=== PATIENT | male | born 1990 | race Caucasian/White ===

== ENCOUNTER → 2017-04-09 12:57 | Outpatient (CLI) | payer OTHER, SELFPAY ==
--- NOTE | 2017-04-09 13:02 | RAD_ITS ---
STUDY: X-RAY - LEFT WRIST REASON FOR EXAM: Male, 26 years old. Pain following a fall. TECHNIQUE: 3 view(s) of the wrist were obtained. COMPARISON: None. FINDINGS: Normal visualized distal radius and ulna. Normal radiocarpal articulation. Normal distal radioulnar articulation. Normal carpal bones. Normal carpal articulations. Normal carpometacarpal articulation of the thumb. Normal second through fifth carpometacarpal articulations. Normal visualized metacarpal bones. Dorsal soft tissue swelling. RAD/Wrist min 3 Views IMPRESSION: Dorsal soft tissue swelling. Electronically Signed: Les Long MD at 15:47 EST Tel [phone], Service support ,
--- NOTE | 2017-04-09 13:02 | RAD_ITS ---
STUDY: X-RAY - LEFT HAND REASON FOR EXAM: Male, 26 years old. Pain following a recent fall. TECHNIQUE: 3 view(s) of the hand. COMPARISON: None. FINDINGS: Normal radiocarpal articulation. Normal distal radioulnar joint. Normal visualized carpal bones. Normal carpal articulations Normal carpometacarpal articulation of the thumb. Normal second through fifth carpometacarpal joints. Normal metacarpi. Normal metacarpophalangeal joint of the thumb. Normal interphalangeal joint of the thumb. Normal proximal and distal phalanges of the thumb. Normal metacarpophalangeal joints of the second through fifth fingers. Normal proximal and distal interphalangeal joints of the second through fifth fingers. Normal phalanges of the second through fifth fingers. The soft tissue structures are unremarkable. RAD/Hand Min 3 Views IMPRESSION: Normal x-ray examination of the hand. Electronically Signed: Les Long MD at 15:46 EST Tel [phone], Service support ,
== END ==
PROVIDERS: Family Provider Family Medicine; PCP Family Medicine; Visit Provider Physician Assistant
DX: S60.222A Contusion of left hand, initial encounter (principal); S60.212A Contusion of left wrist, initial encounter
CPT/HCPCS: 73110; 73130

== ENCOUNTER → 2019-07-31 | Outpatient (CLI) | payer BC, SELFPAY ==
[2019-04-05 08:50] VITALS: BMI 25.9
--- NOTE | 2019-07-31 08:58 | RAD_ITS ---
STUDY: X-RAY - LEFT HAND REASON FOR EXAM: Male, 29 years old. SMASHED THUMB BETWEEN ROCKS TECHNIQUE: 3 view(s) of the hand. COMPARISON: None. FINDINGS: Normal radiocarpal articulation. Normal distal radioulnar joint. Normal visualized carpal bones. Normal carpal articulations Normal carpometacarpal articulation of the thumb. Normal second through fifth carpometacarpal joints. Normal metacarpi. Normal metacarpophalangeal joint of the thumb. Normal interphalangeal joint of the thumb. Nondisplaced comminuted fracture of the distal phalanx of the thumb. Normal metacarpophalangeal joints of the second through fifth fingers. Normal proximal and distal interphalangeal joints of the second through fifth fingers. Questionable old avulsion fracture of the tuft of the distal phalanx of the third digit. Soft tissue swelling. RAD/Hand Min 3 Views IMPRESSION: Nondisplaced, fracture of the distal phalanx of the thumb. Possible old avulsion fracture of the distal phalanx of the third digit. Soft tissue swelling. Electronically Signed: Les Long, at 9:36 EDT , Service support ,
== END | disposition home or self-care (01) ==
LOC: HPRAD 08:58
PROVIDERS: PCP Family Medicine; Referring Provider Physician Assistant; Visit Provider Physician Assistant
DX: S60.222A Contusion of left hand, initial encounter (principal)
CPT/HCPCS: 73130

== ENCOUNTER 2022-05-03 07:38 | Emergency (ER) | payer OTHER, SELFPAY ==
[2022-05-03 07:39] VITALS: BP 170/108; PULSE 125; RESP 18; TEMP 35.7; O2SAT 100; BMI 25.5
--- NOTE | 2022-05-03 07:52 | EDS_ITS ---
HPI History of Present Illness HPI Narrative: Dog bites to both hands and right knee while breaking up his dogs from fighting. Chief Complaint: Bite Informant: patient Occured/Mechanism Mechanism/Context: Yes injury Onset/Context/Timing Onset: Today Context: Sudden Onset Current Severity: Mild Maximum Severity: Mild Associated Symptoms Associated Symptoms: Negative for Parasthesia, Weakness or Loss of Funtion Narrative Narrative: 31-year-old male no seen past medical history. Today his dogs, a beagle and a coon dog, got in a fight he went to break it up and was bitten multiple times on both hands and wrists and also once in his right knee. He is right-hand dominant. Says his last tetanus shot was in high school so that is more than 10 years ago he will need an updated. Denies any other injuries. This occurred around 730 this morning. Tetanus Immunization: >10 years Prior similar symptoms: No Recent Illness/Hospitalization: No ROS ROS ED ROS Narrative Denies recent illness. Review of Systems ROS Unobtainable: Denies due to encephalopathy Constitutional Constitutional ED: Denies fever(s) Eyes Eyes: Denies blurry vision ENT ENT ED: Denies ear pain Cardiovascular Cardiovascular: Denies chest pain Respiratory/Chest Respiratory/Chest: Denies cough or dyspnea Gastrointestinal Gastrointestinal: Denies abdominal pain Genitourinary Genitourinary ED: Denies dysuria Musculoskeletal Musculoskeletal: Denies arthralgias Integumentary Denies abscess Neurologic Neurologic: Denies headache(s) Psychiatric Psychiatric: Denies anxiety Endocrine Endocrinology: Denies polydipsia Hematologic/Lymphatic Hematologic/Lymphatic: Denies easy bleeding Allergic/Immunologic Allergic/Immunologic ED: Denies mouth swelling or tongue swelling PFSH PFSH Medical History no medical history no medical history Home Medications ibuprofen 800 mg tablet 800 mg PO TID #30 tabs 04/05/19 [Rx Last Taken Unknown] amoxicillin 875 mg-potassium clavulanate 125 mg tablet 1 tab PO BID dog bites 7 days #14 tabs 05/03/22 [Rx Last Taken Unknown] Allergy/AdvReac Type Severity Reaction Status Date / Time No Known Allergies Allergy Verified 05/03/22 07:42 Family History Mother Crohn disease Social History Smoking Status: Current every day smoker tobacco type: cigarettes alcohol intake: current alcohol intake frequency: 0-2 drinks per day Alcohol type: beer EXAM Physical Exam Narrative Exam Narrative: Well-appearing 31-year-old male. Vital signs stable afebrile. H EENT exam unremarkable. Neck nontender. Lungs are clear. Heart regular rhythm. Abdomen soft nontender. Moving all 4 extremities. He has multiple dog bites and puncture wounds on both hands and wrists. There is mild active bleeding. No pulsatile bleeding. The worst wounds appear to be on his right ring finger which will need to be repaired. He has full flexion extension of all fingers and thumbs on both hands. He has normal touch sensation and cap refill. There is no obvious bony deformity. Or loss of tendon function. Otherwise he has a small superficial wound on his right knee that does not need repaired. Its not deep. Const Vital Signs: 05/03/22 07:39 05/03/22 08:01 Temperature 96.2 F L Temperature Source Temporal Pulse Rate 125 H Respiratory Rate 18 Respiratory Effort Normal Non-Labored Respiratory Pattern Normal Blood Pressure 170/108 H Blood Pressure Mean 128 Pulse Ox 100 Oxygen Delivery Method Room Air Positive well nourished and well developed; Negative for cachectic, contractures or unkempt General Appearance ED: well developed and NAD; Negative for unkempt, cachectic or contractures Nutritional Appearance: Negative for cachectic HEENT Reports moist mucous membranes normocephalic and atraumatic; Negative for trauma or tenderness Eyes PERRL and EOMs intact bilaterally Neck full ROM and no lymphadenopathy General: Negative for tenderness Resp normal respiratory effort and clear to auscultation bilaterally Effort and Inspection: Negative for other Auscultation: Negative for rales, rhonchi or wheezes Cardio regular rate, regular rhythm, S1 normal heart sound, S2 normal heart sound and no murmurs Jugular Venous Distention: Negative for other Rate: Negative for bradycardia or tachycardic Rhythm: Negative for abnormal rhythm GI non-tender, non-distended and no masses Inspection: Negative for abdominal distention Auscultation: normoactive bowel sounds Palpation: soft; Negative for tender or guarding no CVA tenderness Bladder / Kidney Exam: No CVA tenderness Back/Spine no CVA tenderness General Back: Negative for CVA tenderness Cervical Spine: Negative for cervical spine tenderness Thoracic Spine / Upper Back: Negative for thoracic spinal tenderness Lumbar Spine / Lower Back: Negative for lumbar spinal tenderness Extremity full ROM; Negative for normal to inspection Extremity Narrative: Multiple dog bites and puncture wounds to both hands and wrists. Full flexion extension. Normal touch sensation and cap refill. Right ring finger has a bite laceration and will need to be repaired. General Extremety ED: Yes tenderness; Negative for deformity or edema General Extremity: Negative for deformity or edema Neuro oriented x3, CN's II-XII intact bilaterally and no sensory deficits noted Sensorium / Orientation: alert, oriented to person, oriented to place and oriented to time; Negative for orientation impaired, confused, lethargic or stuporous Motor Exam: strength 5/5 throughout Psych Appearance: Negative for unkempt Skin skin turgor normal General Skin Exam: Negative for other Lesions: no lesions Rashes: no rashes Trauma: laceration MDM MDM MDM Narrative Medical decision making narrative: 31-year-old male tetanus will need to be updated. Multiple dog bites and puncture wounds on both hands and wrists. At least one on the right long finger will need we pared there may be more. The wound on his right knee is superficial and minor. He is going to wash his hands very well. I will reevaluate the wounds. Suture repair of the one on the right ring finger and see if there is any other ones that need repaired. He will be placed on Augmentin twice a day for a week. Wound care and suture removal in a week to 10 days. Tylenol and Motrin. Procedures Lacerations Right ring finger dog bite laceration repair:: Length: 1.57 in Depth: Sub Q Prep: Fiona-Liz Laceration repair: Lidocaine, Local and Skin sutures Number of Sutures/Angela: 4 Suture Information: Ethilon, Simple and 5-0 Comment: Ring finger laceration on the ulnar side. Cleaned with Antonette- Liz cleanse. Locally anesthetized with lidocaine. Washed with saline and irrigated with saline and explored. Closed using 4 simple interrupted 5-0 Ethilon sutures. Proper hemostasis wound closure is obtained. Patient instructed on wound care and suture removal in 7 to 10 days. Discharge Plan Triage Chief Complaint: Bite ED Provider: Butch Lindsay Dx/Rx/DC Orders Clinical Impression: Dog bite Instructions: ED Dog Bite Prescriptions: New amoxicillin-pot clavulanate 875-125 mg tablet 1 tab PO BID 7 Days Qty: 14 0RF No Action ibuprofen 800 mg tablet 800 mg PO TID Qty: 30 0RF Primary Care Provider: Shirley Kearney Referrals: Hector Martinez DO [Med Staff - Die Maker Apprentice] - 7 Days for suture removal Activity Restrictions/Additional Instructions: Clean hands well at least soap and water peroxide and water. Dry thoroughly. Apply antibiotic ointment to the wounds. Watch for any signs of infection such as pus, worsening swelling, redness, streaks or fever if seen need to be reevaluated. Ice and elevate hand to decrease pain and swelling. Motrin and Tylenol for pain and swelling. Stitches out in 7 to 10 days. Augmentin 1 pill twice a day for 1 week to try to prevent any infection from developing since these are dog bites. Disposition Disposition: Home, Self Care
[2022-05-03] MEDS: Diphth,Pertuss(Acell),Tet Vac 0.5 ML Vial IM (07:58)
[2022-05-03] MEDS: Lidocaine 1% (20 ml mdv) 20 ML Vial INFILT (07:59)
[2022-05-03 08:41] VITALS: BP 127/66; PULSE 71; RESP 15; O2SAT 100
== END 2022-05-03 08:41 | disposition home or self-care (01) ==
PROVIDERS: Emergency Provider Emergency Medicine; Visit Provider Emergency Medicine
DX: S61.254A Open bite of right ring finger without damage to nail, initial encounter (principal); S61.451A Open bite of right hand, initial encounter; S61.452A Open bite of left hand, initial encounter; F17.210 Nicotine dependence, cigarettes, uncomplicated; S81.051A Open bite, right knee, initial encounter; Z23 Encounter for immunization; W54.0XXA Bitten by dog, initial encounter
CPT/HCPCS: 12002; 90471; 90715; 99284

== ENCOUNTER → 2023-11-16 | Outpatient (CLI) | payer SELFPAY ==
--- NOTE | 2023-11-16 14:27 | RAD_ITS ---
STUDY: X-RAY - RIGHT HAND REASON FOR EXAM: Male, 33 years old. Right hand injury. TECHNIQUE: 3 views of the right hand. COMPARISON: None. FINDINGS: Normal radiocarpal articulation. Normal distal radioulnar joint. Normal visualized carpal bones. Normal carpal articulations Normal carpometacarpal articulation of the thumb. Normal second through fifth carpometacarpal joints. Normal metacarpi. Normal metacarpophalangeal joint of the thumb. Normal interphalangeal joint of the thumb. Normal proximal and distal phalanges of the thumb. Normal metacarpophalangeal joints of the second through fifth fingers. Normal proximal and distal interphalangeal joints of the second, third, and fifth fingers. There is a fracture at the volar base of the fourth middle phalanx. There is dorsal subluxation at the fourth PIP joint. Intact phalanges of the second, third, and fifth fingers. The soft tissue structures are unremarkable. RAD/Hand Min 3 Views IMPRESSION: Fracture at the volar base of the fourth middle phalanx. Dorsal subluxation at the fourth PIP joint. Electronically Signed: Fran Mcintyre MD at 14:47 EDT Reading Location ID and State: [facility] / [place] , Service support ,
== END | disposition home or self-care (01) ==
LOC: MTRAD 14:27
PROVIDERS: Referring Provider Physician Assistant Surgical; Visit Provider Physician Assistant Surgical
DX: S69.91XA Unspecified injury of right wrist, hand and finger(s), initial encounter (principal); X58.XXXA Exposure to other specified factors, initial encounter
CPT/HCPCS: 73130

== ENCOUNTER → 2024-10-14 | Outpatient (CLI) | payer BC, SELFPAY ==
[2024-10-14 12:31] LABS: Hematocrit 42.9 % (40-54); Hemoglobin 14.9 g/dL (13.0-16.5); Immature Granulocytes Count 0.030 X10^3/uL (0.0-0.0); Mean Corp Hgb Conc 34.7 g/dL (32-36); Mean Corpuscular Volume 92.9 fL (80-94); Mean Platelet Vol. 9.6 fl (6.2-12.0); NRBC Flagged by Analyzer 0 % (0-5); Platelet Count 207 K/mm3 (150-450); RBC Distribution Width CV 12.3 % (11.6-14.6); RBC Distribution Width SD 42.2 fl (35.1-43.9); Red Blood Count 4.62 M/mm3 (4.6-6.2); White Blood Count 11.8 K/mm3 (4.4-11.0)
[2024-10-14 12:34] LABS: Color, Urine Yellow (Yellow); Glucose, Dipstick Normal (Normal); Ketone-Dipstick 5 mg/dl (Negative); Leukocyte Esterase-Dipstick 25 /ul (Negative); Nitrite-Dipstick Negative (Negative); Occult Blood-Urine Negative /ul (Negative); Protein-Dipstick 30 mg/dl (Negative); Specific Gravity, Urine 1.025 (1.002-1.030); Urine Bilirubin Dipstick Negative (Negative)
[2024-10-14 13:06] LABS: AST(SGOT) 22 U/L (<=37); Alanine Aminotransfer ALT/SGPT 17 U/L (<=46); Albumin, Serum 4.8 g/dL (3.5-5.0); Alkaline Phosphatase 108 U/L (40-129); Anion Gap 14 (5-15); BUN 19 mg/dL (4-19); BUN/Creat Ratio 22.3 RATIO (10-20); Calcium,Total 9.8 mg/dL (7.6-11.0); Carbon Dioxide 22.8 mmol/L (21.0-32.0); Chloride 103 mmol/L (98-108); Cholesterol 208 mg/dL (<=200); Globulin 2.6 g/dL (2.2-4.2); Glucose 96 mg/dL (70-99); Low Density Lipoprotein Calc. 140 mg/dL; Potassium 3.8 mmol/L (3.3-5.1); Triglycerides 133 mg/dL; Very Low Density Lipoprotein 27 mg/dL (5-40); cholesterol:hdl ratio screen 5.06
[2024-10-15 05:07] LABS: HEPATITIS B SURFACE AG Negative (Negative); Hep C Antibodies Non Reactive (Non Reactive)
== END | disposition home or self-care (01) ==
LOC: VSLAB 08:43
DX: Z00.00 Encounter for general adult medical examination without abnormal findings (principal)
CPT/HCPCS: 36415; 80053; 80061; 80074; 81002; 83036; 84443; 85025